=== PATIENT | male | born 1985 | race Caucasian/White ===

== ENCOUNTER 2017-04-24 15:16 | Emergency (ER) | payer BC, OTHER ==
[~2017-04-24] VITALS: Ht 160 cm; Wt 59.0 kg
[2017-04-24 15:23] VITALS: Ht 160 cm; Wt 59.0 kg
--- NOTE | 2017-04-24 18:40 | ERA ---
ER Documentation Chief Complaint Date/Time DATE: 04/24/17 TIME: 18:40 Chief Complaint AP X 3-4 months HPI The patient is a 31-year-old male, presenting to the ER because of chronic epigastric abdominal pain for 3-4 months. He has been seen multiple times in the ER. He was seen yesterday at [facility] ER where he had normal abdominal pelvic CT scan, he had a negative abdominal ultrasound a week ago. He went to see his matzo forming machine operator today who will arrange for EGD in about 1 week. He denies fever, chills, neck pain, chest pain, dyspnea, complains constipation, denied dysuria. He smokes and drinks denies illicit drug Past medical history: Anxiety, diabetes mellitus Past surgical history: None ROS All systems reviewed and are negative except as per history of present illness. Medications Home Meds Active Scripts Hydrocodone/Acetaminophen (Provo 5-325 Tablet) 1 Each Tablet, 1 TAB PO Q6H Y for PAIN, #7 TAB Prov:SANTO TREJO MD 04/24/17 Physical Exam Vitals Vital Signs Date Time Temp Pulse Resp B/P Pulse Ox O2 Delivery O2 Flow Rate FiO2 04/24/17 19:19 75 18 100 Nasal Cannula 2.0 04/24/17 15:23 97.7 92 18 164/89 98 Physical Exam Const: No acute distress. Head: Atraumatic. Eyes: Normal Conjunctiva. ENT: Normal External Ears, Nose and Mouth. Neck: Full range of motion. No meningismus. Resp: Clear to auscultation bilaterally. Cardio: Regular rate and rhythm. Abd: Soft, non distended, normal bowel sounds, minimal and vague epigastric abdominal tenderness, no right lower, right upper quadrant, CVA, rigidity, rebound or CVA tenderness Skin: No petechiae or rashes. Back: No midline or flank tenderness. Ext: No cyanosis, or edema. Neur: Awake and alert. No focal deficit Psych: Normal Mood and Affect. Result Diagram: 04/24/17191504/24/171915 Results 24 hrs Laboratory Tests Test 04/24/17 19:16 White Blood Count 6.610^3/ul Red Blood Count 5.5210^6/ul Hemoglobin 15.3g/dl Hematocrit 44.4% Mean Corpuscular Volume 80.4fl Mean Corpuscular Hemoglobin 27.7pg Mean Corpuscular Hemoglobin Concent 34.5g/dl Red Cell Distribution Width 12.0% Platelet Count 73604^3/UL Mean Platelet Volume 11.8fl Neutrophils % 59.1% Lymphocytes % 30.6% Monocytes % 8.3% Eosinophils % 0.9% Basophils % 0.8% Nucleated Red Blood Cells % 0.0/100WBC Neutrophils # 3.910^3/ul Lymphocytes # 2.010^3/ul Monocytes # 0.610^3/ul Eosinophils # 0.110^3/ul Basophils # 0.110^3/ul Nucleated Red Blood Cells # 0.010^3/ul Sodium Level 145mmol/L Potassium Level 4.1mmol/L Chloride Level 99mmol/L Carbon Dioxide Level 28mmol/L Anion Gap 22 Blood Urea Nitrogen 9mg/dl Creatinine 0.85mg/dl Glucose Level 106mg/dl Calcium Level 10.2mg/dl Total Bilirubin 0.3mg/dl Direct Bilirubin 0.00mg/dl Indirect Bilirubin 0.3mg/dl Aspartate Amino Transf (AST/SGOT) 21IU/L Alanine Aminotransferase (ALT/SGPT) 35IU/L Alkaline Phosphatase 58IU/L Total Protein 8.2g/dl Albumin 5.0g/dl Globulin 3.20g/dl Albumin/Globulin Ratio 1.56 Lipase 69U/L Current Medications Medications (Trade) Dose Ordered Sig/Miguel Ángel Route PRN Reason Start Time Stop Time Status Last Admin Dose Admin Morphine Sulfate (morphine) 4 mg ONCE STAT IV 04/24/17 18:53 04/24/17 18:54 DC 04/24/17 19:18 Ondansetron HCl (Zofran Inj) 4 mg ONCE STAT IV 04/24/17 18:53 04/24/17 18:54 DC 04/24/17 19:18 Procedures/MDM MEDICAL MAKING DECISION: The patient is a 31-year-old male, presenting with chronic abdominal pain of unclear etiology. He was treated with morphine 4 mg IV for pain, Zofran 4 IV for now nausea with good response. The differential diagnoses considered include but are not limited to cholelithiasis, cholecystitis, cystitis, pancreatitis, hepatitis, gastritis, peptic ulcer disease, gastric ulcer, appendicitis, diverticulitis, cholangitis, choledocholithiasis, partial small bowel obstruction. Departure Diagnosis: Primary Impression: Abdominal pain Condition: Good Comments He was discharged with Provo I discussed the findings with the patient. I advised the patient to follow-up with his matzo forming machine operator in about 1-2 days, sooner if needed and return if any concern. The patient's blood pressure was elevated (>120/80) but appears stable without evidence of hypertension emergency or urgency. The patient was counseled about the risks of hypertension and urged to pursue outpatient monitoring and therapy within a week with their primary care physician. SANTO TREJO MD Apr 24, 2017 18:40
[2017-04-24] MEDS ORDERED: ONDANSETRON 4 MG INJ IV STA (18:53)
[2017-04-24] MEDS ORDERED: morphine 4 MG/ML VIAL IV STA (18:53)
[2017-04-24 19:42] LABS: BASOPHIL # 0.1 10^3/ul (0.0-0.1); BASOPHILS % 0.8 % (0.0-2.0); EOSINOPHILS # 0.1 10^3/ul (0.0-0.5); EOSINOPHILS % 0.9 % (0.0-7.0); HEMATOCRIT 44.4 % (42.0-52.0); HEMOGLOBIN 15.3 g/dl (14.0-18.0); LYMPHOCYTES % 30.6 % (15.0-51.0); MEAN CORPUSCULAR HEMOGLOBIN 27.7 pg (29.0-33.0); MEAN CORPUSCULAR HGB CONC 34.5 g/dl (32.0-37.0); MEAN CORPUSCULAR VOLUME 80.4 fl (82.0-101.0); MEAN PLATELET VOLUME 11.8 fl (7.4-10.4); MONOCYTE # 0.6 10^3/ul (0.3-0.9); MONOCYTES % 8.3 % (0.0-11.0); NEUTROPHIL # 3.9 10^3/ul (1.6-7.5); NEUTROPHILS % 59.1 % (39.0-77.0); PLATELET COUNT 208 10^3/UL (140-415); RED BLOOD COUNT 5.52 10^6/ul (4.70-6.10); WHITE BLOOD COUNT 6.6 10^3/ul (4.8-10.8)
[2017-04-24 20:02] LABS: ALBUMIN/GLOBULIN RATIO 1.56; BILIRUBIN,INDIRECT 0.3 mg/dl (0-1.1); BILIRUBIN,TOTAL 0.3 mg/dl (0.2-1.3); CALCIUM 10.2 mg/dl (8.4-10.2); CREATININE 0.85 mg/dl (0.61-1.24); POTASSIUM 4.1 mmol/L (3.5-5.1); TOTAL PROTEIN 8.2 g/dl (6.1-8.1)
[2017-04-24 20:36] LABS: URINE BLOOD (Dip) POC Negative (NEGATIVE)
[2017-04-24] MEDS ORDERED: HYDR-906 PO (20:38)
[2017-04-24] MEDS ORDERED: PANT40TA3 PO (20:56)
[2017-04-24] MEDS ORDERED: LORAZEPAM 0.5 MG TAB PO ONE (21:00)
[2017-04-24] MEDS ORDERED: PANTOPRAZOLE (EC) 40 MG TAB PO ONE (21:00)
[2017-04-24 21:23] VITALS: BP 148/92; PULSE 80; RESP 18
== END 2017-04-24 21:27 | disposition home or self-care (01) ==
LOC: FTE 15:16
DX: R10.13 Epigastric pain (principal); E11.9 Type 2 diabetes mellitus without complications
CPT/HCPCS: 36415; 80053; 81003; 83690; 85025; 96374; 96375; 99284; J2270; J2405; Z7610